=== PATIENT | male | born 1950 | race Caucasian/White ===

== ENCOUNTER 2024-07-03 03:27 | Emergency (ER) | payer MEDICARE ==
[~2024-07-03] VITALS: Ht 180.3 cm; Wt 110.8 kg
[2024-07-03] MEDS ORDERED: NOREPINEPHRINE BITARTRATE/D5W 250 ML IV SCH ×2 (03:35→05:45)
[2024-07-03 03:47] LABS: HEMATOCRIT 37.3 % (42.0-52.0); MEAN CELL VOLUME 95.2 fl (80.0-94.0); MEAN CORPUSCULAR HGB 29.6 pg (27.0-31.0); MEAN CORPUSCULAR HGB CONC 31.1 g/dl (33.0-37.0); MEAN PLATELET VOLUME 12.2 fl (9.6-12.3); PLATELET COUNT AUTOMATED 86 10*3/uL (130-400); RED BLOOD COUNT 3.92 10*6/uL (4.50-5.90); RED CELL DISTRI WIDTH 12.7 % (0-14.5); WHITE BLOOD COUNT 17.5 10*3/uL (4.8-10.8)
[2024-07-03 03:48] LABS: MANUAL DIFF REFLEX YES
[2024-07-03] MEDS ORDERED: NOREPINEPHRINE BITARTRATE/D5W 250 ML IV ONE (03:50)
[2024-07-03] MEDS ORDERED: SODIUM CHLORIDE 0.9% 2,000 ML IV ONE (03:56)
[2024-07-03 03:57] LABS: ACT PARTIAL THROMBO TIME 30.5 SECONDS (20.0-32.1)
[2024-07-03] MEDS ORDERED: SODIUM CHLORIDE 0.9% 100 ML BAG IV ONE (04:05)
[2024-07-03] MEDS ORDERED: IOHEXOL 350 MG/ML 100 ML VIAL IV ONE ×2 (04:05→04:24)
[2024-07-03 04:07] LABS: POTASSIUM 3.5 mmol/L (3.4-5.1); TOTAL CELLS COUNTED 100 #CELLS; TOTAL PROTEIN 5.1 gm/dL (6.0-8.0)
[2024-07-03 04:08] LABS: BURR CELLS FEW; OVALOCYTES FEW; PLATELET SUFFICIENCY LOW (NORMAL)
[2024-07-03] MEDS ORDERED: SODIUM CHLORIDE 0.9% 100 ML IV ONE (04:23)
[2024-07-03] MEDS ORDERED: SODIUM CHLORIDE 0.9% 1,000 ML IV SCH (04:25)
[2024-07-03] MEDS ORDERED: TAMSULOSIN HCL0.4 MG PO (05:24)
[2024-07-03] MEDS ORDERED: ATENOLOL50 M1 PO (05:24)
[2024-07-03] MEDS ORDERED: ATORVASTATIN CA40 M1 PO (05:24)
[2024-07-03] MEDS ORDERED: Synthroid,Levo25 MCG PO (05:24)
[2024-07-03] MEDS ORDERED: ASPIRIN ADULT L81 M1 PO (05:25)
[2024-07-03] MEDS ORDERED: ELIQUIS5 M1 PO (05:25)
[2024-07-03] MEDS ORDERED: GABAPENTIN600 MG PO (05:25)
[2024-07-03] MEDS ORDERED: MORPHINE Sulfate 2 MG/ML SYR IV ONE (05:45)
== END 2024-07-03 07:00 | disposition short-term general hospital (02) ==
LOC: ED 03:27
PROVIDERS: Internal Medicine
DX: I71.12 Aneurysm of the aortic arch, ruptured (principal); I31.4 Cardiac tamponade; M54.9 Dorsalgia, unspecified; Z79.899 Other long term (current) drug therapy; Z79.82 Long term (current) use of aspirin